=== PATIENT | male | born 1990 | race Caucasian/White ===

== ENCOUNTER 2025-01-23 13:09 | Emergency (ER) | payer OTHER, SELFPAY ==
[2025-01-23 13:11] VITALS: BP 142/92
[2025-01-23 13:53] VITALS: BP 123/58
[2025-01-23 13:54] VITALS: BMI 33.5
[2025-01-23] MEDS: NSS 1000 IV (13:55)
[2025-01-23] MEDS: REGLAN 10 MG IV (13:56)
[2025-01-23 14:00] VITALS: BP 112/71
[2025-01-23 14:02] LABS: Hematocrit 42.5 % (39.0-52.0); Mean Corp Hgb Conc. 35.3 g/dL (33.0-37.0); Mean Platelet Volume 8.7 fL (7.4-10.4); Platelet Count 259 10^3/uL (130-400); Red Cell Dist. Width 11.6 % (11.5-14.5); White Blood Cell Count 11.1 10^3/uL (4.8-10.8)
[2025-01-23 14:20] LABS: ALT (SGPT) 24 U/L (0-50); AST (SGOT) 20 U/L (17-59); Alkaline Phosphatase 51 U/L (38-126); Blood Urea Nitrogen 15 mg/dl (9-20); Calcium 9.3 mg/dl (8.4-10.2); Carbon Dioxide 25 mmol/L (22-30); Chloride 105 mmol/L (98-107); Estimated Creatinine Clearance > 125 ml/min; Glucose 95 mg/dl (70-99); Lipase 174 U/L (23-300); Potassium 4.1 mmol/L (3.5-5.1); Sodium 139 mmol/L (135-145); Total Bilirubin 0.8 mg/dl (0.2-1.3); Total Protein 6.5 g/dl (6.3-8.2); eGFR > 60.00
--- NOTE | 2025-01-23 15:15 | ED.GENMED ---
History of Present Illness
General
Chief Complaint: Abdominal Symptoms
Time Seen by Provider: 01/23/25 13:15
History of Present Illness
History of Present Illness:
34-year-old male who presents the emergency department for evaluation of generalized abdominal discomfort associated with nausea vomiting diarrhea for the past 2 days. Patient notes that he has been on Wegovy for the past year but has not had any
dosage changes in the past 6 months or more. Reports generalized discomfort and intolerance to p.o. intake. No history abdominal surgeries. No hematochezia or hematemesis
Past History
Past History
ED Past Medical History: Other (ADHD)
ED Past Surgical History: None
Social History
Tobacco: Non-smoker
Alcohol: None
Review of Systems
Review of Systems
Allergies reviewed?: Yes
All Other Systems: ROS reviewed and negative except as documented in HPI and ROS
Phy Exam
Physical Exam
Physical Exam:
GEN: Well appearing, NAD, WDWN
HEENT: Oral mucosa moist, no scleral icterus
Cardiac: Regular rate
Lung: No respiratory distress, no tachypnea
Abdomen: Soft, diffuse lower abdominal tenderness, nonfocal
MSK: No gross deformity or injuries
Skin: Good color, no pallor or jaundice, no rashes
Neuro: AO x3, moves all extremities freely
Psych: Calm, cooperative
Course
Orders/Labs/Results
Orders:
Orders
01/23/25 13:33
0.9% Sodium Chloride 1000 ml [Nss] 1,000 ml IV BOLUS
Metoclopramide [Reglan] 10 mg IV NOW STA
01/23/25 13:46
Complete Blood Count/No Diff Urgent
Comprehensive Metabolic Panel Urgent
Lipase Urgent
Abnormal Lab Results
01/23/25
13:46
WBC 11.1 H 10^3/uL
(4.8-10.8)
01/23/25 13:46
01/23/25 13:46
Vital Signs
Initial and Last Documented VS:
Initial Vital Signs
Temp Pulse Resp BP Pulse Ox
97.5 F 86 16 142/92 100
01/23/25 13:11 01/23/25 13:11 01/23/25 13:11 01/23/25 13:11 01/23/25 13:11
Last Documented Vital Signs
Temp Pulse Resp BP Pulse Ox
97.5 F 86 16 112/71 94
01/23/25 13:11 01/23/25 13:11 01/23/25 13:11 01/23/25 14:00 01/23/25 14:45
MDM/Problems Addressed
MDM/Problems Addressed:
Likely symptoms due to prolonged GLP-1 use. Benign abdominal exam, no indication for imaging, improved with supportive treatment in the ED
*Critical Care Note
Total Time (30-74mins, 75-104mins- exclusive of procedures): Not Applicable
ED Attending Note
-
Portions of this chart may have been created with voice recognition software.� Occasional wrong word or��sound alike� substitutions may have occurred due to the inherent limitations of voice recognition software.
Discharge Plan
Departure
Patient Disposition: Home (Routine Discharge)
Date of Disposition: 01/23/25
Time of Disposition: 15:19
Patient with high blood pressure during this ER visit?: No
Discharge Problem:
Nausea, vomiting, and diarrhea
Instructions: Abdominal Pain
Prescriptions:
New
metoclopramide HCl [Reglan] 10 mg tablet
10 mg PO Q8HPRN PRN (Reason: nausea and vomiting) Qty: 9 0RF
Referrals:
Wilman Cui, [Family Provider] -
Activity Restrictions/Additional Instructions:
Do not take your Wegovy for the next 2 doses
Increase fluids and stick to a bland diet for the next 24 to 48 hours
Interventions
Interventions:
*Risk Screen - Suicide Last Done: 01/23/25 13:11
*General Assessment Last Done: 01/23/25 13:11
*ED- Fall Risk Assessment Last Done: 01/23/25 13:54
*ED COVID-19 Vaccine History Last Done: 01/23/25 13:54
IO-Aukgsg-Skbosnltdj Assessment Last Done: 01/23/25 13:55
Discharge Date and Time
Print Language: POLISH
== END 2025-01-23 15:43 | disposition home or self-care (01) ==
LOC: EMR 13:09
PROVIDERS: Physician Assistant; EMERGENCY PHYSICIAN Emergency Medicine; FAMILY PHYSICIAN Family Medicine
DX: R11.2 Nausea with vomiting, unspecified (principal); R10.84 Generalized abdominal pain; R19.7 Diarrhea, unspecified
CPT/HCPCS: 96374; 96361; 99284; 80053; 83690; 85027

== ENCOUNTER 2025-05-24 20:55 | Emergency (ER) | payer OTHER, SELFPAY ==
[2025-05-24 20:58] VITALS: BP 139/95
--- NOTE | 2025-05-24 22:01 | ED.GENMED ---
History of Present Illness
General
Chief Complaint: Musculo-Skeletal Complaint
Source: patient
Exam Limitations: none
Time Seen by Provider: 05/24/25 21:38
History of Present Illness
History of Present Illness:
35yoM with a history of ADHD presenting for evaluation of right calf pain. Patient was running while playing softball when he felt a sudden pain in his right calf. He states it sounded like he got shot in the back of the calf and initially thought
he may have been hit in the calf with the ball. He has been unable to ambulate since the injury. No paresthesias. This is his first year playing softball.
Past History
Past History
ED Past Medical History: Other (ADHD)
ED Past Surgical History: None
Social History
Tobacco: Non-smoker
Alcohol: None
Phy Exam
General Physical Exam
General Presentation: well appearing and no apparent distress
General Skin: warm and dry
General Mental: alert
ENT Exam
ENT Exam: normocephalic
Pulmonary Exam
Pulmonary Exam: no respiratory distress
Neurological Exam
Neurological Exam: alert
[place] Coma Scale
Eye Opening: Spontaneous
Verbal Response: Oriented
Motor Response: Obeys Commands
GCS Total Score: 15
Musculoskeletal Exam
Musculoskeletal Exam: other (R calf: Tenderness to upper posterior calf. No palpable defect in muscle. Compartments soft. No tenderness or defect along Achilles tendon. Negative Turner test. ROM of knee and ankle intact although dorsiflexion
elicits pain. 2+ DP pulse.)
Skin Exam
Skin Exam: normal color and warm/dry
Psychiatric Exam
Psychiatric Exam: normal mood/affect
Course
Orders/Labs/Results
Orders:
Orders
05/24/25 21:03
CR Leg Tibia/fibula Right 2 Vw Urgent
Comment:
Reason For Exam: injury
05/24/25 22:03
Ibuprofen [Motrin] 600 mg PO NOW STA
05/24/25 23:00
Crutches-Treatment ONCE
boot [Ortho Boot Right- Treatment] ONCE
Short or tall?: Tall
Vital Signs
Initial and Last Documented VS:
Initial Vital Signs
Temp Pulse Resp BP Pulse Ox
98.9 F 118 18 139/95 97
05/24/25 20:58 05/24/25 20:58 05/24/25 20:58 05/24/25 20:58 05/24/25 20:58
Last Documented Vital Signs
Temp Pulse Resp BP Pulse Ox
98.9 F 118 18 139/95 97
05/24/25 20:58 05/24/25 20:58 05/24/25 20:58 05/24/25 20:58 05/24/25 22:03
MDM/Problems Addressed
Differential Diagnosis Includes:
35yoM here with R calf pain. He was running while playing softball when he felt a sudden pop in his calf with pain. Pain is located along the proximal calf. There is no tenderness or defect to the Achilles tendon and Turner test is negative. No
obvious defect in muscle belly or hematoma. ROM of ankle/knee intact. RLE is neurovascularly intact.
X-rays of tib/fib obtained which are negative for fracture. Suspect muscle vs. tendon injury. Long walking boot and crutches given. Supportive care reviewed and advised f/u with orthopedics.
*Pulse Oximetry
SaO2: 97
Patient hypoxic: no (97%)
*Critical Care Note
Total Time (30-74mins, 75-104mins- exclusive of procedures): Not Applicable
ED Attending Note
-
Portions of this chart may have been created with voice recognition software.� Occasional wrong word or��sound alike� substitutions may have occurred due to the inherent limitations of voice recognition software.
Discharge Plan
Departure
Patient Disposition: Home (Routine Discharge)
Date of Disposition: 05/24/25
Time of Disposition: 23:08
Patient with high blood pressure during this ER visit?: Yes
Discharge Problem:
Strain of other muscle(s) and tendon(s) at lower leg level, right leg, initial encounter
Instructions: Muscle Strain (DC)
Prescriptions:
No Action
metoclopramide HCl [Reglan] 10 mg tablet
10 mg PO Q8HPRN PRN (Reason: nausea and vomiting) Qty: 9 0RF
Referrals:
Wilman Cui DO [Family Provider, Family Practice]
Sebas Coulter MD [Active, Orthopedics]
Activity Restrictions/Additional Instructions:
Rest, ice, and elevate your leg. Use crutches as needed.
Please call tomorrow to schedule a follow-up with orthopedics.
Interventions
Interventions:
*Risk Screen - Suicide Last Done: 05/24/25 20:59
*General Assessment Last Done: 05/24/25 20:59
*Neglect/Abuse Screening Last Done: 05/24/25 20:59
*ED- Fall Risk Assessment Last Done: 05/24/25 23:43
*ED COVID-19 Vaccine History Last Done: 05/24/25 20:59
*Nursing Disposition Last Done: 05/24/25 23:44
ED-Musculoskeletal Assessment Last Done: 05/24/25 23:44
Discharge Date and Time
Discharge Date/Time: 05/24/25 23:45
Print Language: SYRIAC
[2025-05-24] MEDS: MOTRIN 600 MG PO (22:15)
== END 2025-05-24 23:45 | disposition home or self-care (01) ==
LOC: EMR 20:55
PROVIDERS: EMERGENCY PHYSICIAN Emergency Medicine; FAMILY PHYSICIAN Family Medicine
DX: S86.811A Strain of other muscle(s) and tendon(s) at lower leg level, right leg, initial encounter (principal); X58.XXXA Exposure to other specified factors, initial encounter; Y93.64 Activity, baseball; F90.9 Attention-deficit hyperactivity disorder, unspecified type
CPT/HCPCS: 99283; 29515; 73590